=== PATIENT | male | born 1955 | race Caucasian/White ===

== ENCOUNTER 2025-07-28 05:49 | Emergency (ER) | payer OTHER ==
[~2025-07-28] VITALS: Ht 188 cm; Wt 119.0 kg
[2025-07-28] MEDS ORDERED: ALBUTEROL/IPRATROPIUM 3 ML NEB INH PRN (06:15)
[2025-07-28] MEDS ORDERED: WARFARIN SODIUM5 MG PO (06:19)
[2025-07-28] MEDS ORDERED: LISINOPRIL5 MG PO (06:19)
[2025-07-28] MEDS ORDERED: EZETIMIBE10 MG PO (06:19)
[2025-07-28] MEDS ORDERED: NITROGLYCERIN0.4 MG SL (06:20)
[2025-07-28] MEDS ORDERED: SIMVASTATIN40 MG PO (06:20)
[2025-07-28 06:24] LABS: BASOPHILS 1.1 % (0.2-1.2); EOSINOPHILS 3.9 % (0.8-7.0); LYMPHOCYTES 31.7 % (21.8-53.1); MCH 30.8 PG (25.7-32.2); MCHC 34.3 g/dL (32.3-36.5); MCV 89.9 fL (79.0-92.2); MONOCYTES 7.4 % (5.3-12.2); NEUTROPHILS 55.6 % (34.0-67.9); RBC 5.74 M/uL (4.63-6.08)
[2025-07-28 06:32] LABS: ALT (SGPT) 36.0 U/L (14-59); AST (SGOT) 24.0 U/L (15-37); GLOMERULAR FILTRATION RATE,EST 70.0 mL/min (>60); PROTEIN, TOTAL 7.6 g/dL (6.4-8.2); UREA NITROGEN 21.0 mg/dL (7-18)
[2025-07-28 06:53] LABS: CORONAVIRUS COVID-19 AG NEGATIVE (NEGATIVE)
[2025-07-28] MEDS ORDERED: FUROSEMIDE 40 MG TAB PO ONE (07:30)
[2025-07-28] MEDS ORDERED: LASIX40 MG PO (07:31)
[2025-07-28] MEDS ORDERED: KLOR-CON M2020 MEQ PO (07:31)
[2025-07-28 07:48] VITALS: BP 140/94
--- NOTE | 2025-07-29 14:17 | EKG ---
[facility] [address] [place], [place] [address] Signed Normal sinus rhythm Nonspecific intraventricular block Possible Lateral infarct , age undetermined Abnormal ECG No previous ECGs available Confirmed by Yefri Delaney DO ([id number]) on 07/29/2025 2:17:15 PM Electronically Signed By: YEFRI DELANEY DO 07/29/25 1417 PATIENT NAME: EUGENE WEBSTERWillie SAMANO Electrocardiogram DATE OF : 59 PHYSICIAN: YEFRI DELANEY DO REPORT #: [id number] REPORT IS CONFIDENTIAL AND NOT TO BE RELEASED WITHOUT AUTHORIZATION
== END 2025-07-28 07:48 | disposition home or self-care (01) ==
LOC: ED 05:49
PROVIDERS: Internal Medicine
DX: I50.9 Heart failure, unspecified (principal); I25.2 Old myocardial infarction; E78.00 Pure hypercholesterolemia, unspecified; Z95.2 Presence of prosthetic heart valve; Z95.1 Presence of aortocoronary bypass graft; Z95.5 Presence of coronary angioplasty implant and graft; Z79.01 Long term (current) use of anticoagulants; Z79.899 Other long term (current) drug therapy
CPT/HCPCS: 36415; 71045; 80053; 83735; 83880; 84484; 85025; 93005; 93010; 99285-25